=== PATIENT | female | born 1970 | race Two or more races ===

== ENCOUNTER 2024-08-20 07:30 | Emergency (ER) | payer OTHER ==
[~2024-08-20] VITALS: Ht 157.5 cm; Wt 59.9 kg
[2024-08-20] MEDS ORDERED: METHYLPREDNISOLONE SOD SUCC 125 MG VIAL IM STA (10:13)
[2024-08-20] MEDS ORDERED: DIPHENHYDRAMINE HCL 50 MG/ML VIAL 1ML IM STA (10:13)
[2024-08-20] MEDS ORDERED: FAMOTIDINE/PF 20 MG/2 ML VIAL IV PUSH STA (10:15)
== END 2024-08-20 10:37 | disposition home or self-care (01) ==
LOC: ER 07:32
DX: L29.89 Other pruritus (principal); Z88.0 Allergy status to penicillin; Z88.6 Allergy status to analgesic agent; Z91.041 Radiographic dye allergy status; Z88.2 Allergy status to sulfonamides
CPT/HCPCS: 96365; 96372; 99282; J1200; J3490 ×2

== ENCOUNTER 2024-10-25 19:01 | Emergency (ER) | payer OTHER ==
[~2024-10-25] VITALS: Ht 157.5 cm; Wt 63.0 kg
[2024-10-25 19:34] VITALS: BP 163/88; O2SAT 98
[2024-10-25] MEDS ORDERED: BENZONATATE 100 MG CAPSULE PO ONE (21:45)
[2024-10-25] MEDS ORDERED: IPRATROPIUM/ALBUTEROL SULFATE 3 ML AMPUL.NEB IH SCH (21:45)
[2024-10-25 22:06] LABS: HEMATOCRIT 44.1 % (36.0-45.00); HEMOGLOBIN 15.6 g/dL (12.0-15.00); MEAN CELL VOLUME 87.2 fL (80.00-100.00); MEAN CORPUSCULAR HEMOGLOBIN 30.8 pg (27.00-32.0); MEAN CORPUSCULAR HGB CONC 35.3 g/dl (32.0-36.0); PLATELET COUNT 359 K/uL (150-450); RED BLOOD COUNT 5.06 M/uL (4.00-6.00); RED CELL DISTRIBUTION WIDTH 12.9 % (11.5-14.5)
[2024-10-25] MEDS ORDERED: IPRATROPIUM/ALBUTEROL SULFATE 3 ML AMPUL.NEB IH ONE (22:27)
[2024-10-26] MEDS ORDERED: BENZONATATE200 M1 PO (00:13)
== END 2024-10-26 00:48 | disposition home or self-care (01) ==
LOC: ER 19:03
PROVIDERS: Preventive Medicine Public Health & General Preventive Medicine
DX: J06.9 Acute upper respiratory infection, unspecified (principal); R05.9 Cough, unspecified; Z20.822 Contact with and (suspected) exposure to COVID-19; Z88.2 Allergy status to sulfonamides

== ENCOUNTER 2025-04-23 11:03 | Emergency (ER) | payer OTHER ==
[~2025-04-23] VITALS: Ht 157.5 cm; Wt 59.9 kg
[~2025-04-23 11:03] MED LIST: BENZONATATE200 M1 PO
[2025-04-23] MEDS ORDERED: ACETAMINOPHEN 500 MG GEL..CAP PO ONE (15:15)
[2025-04-23 15:56] LABS: BASO % 0.3 % (0.1-1.2); EOS # 0.21 (0.04-0.54); EOS % 2.2 % (0.7-7.0); LYMPH # 4.13 (1.18-3.74); LYMPH % 43.8 % (19.3-53.1); MEAN PLATELET VOLUME 9.40 fl (9.4-12.4); MONO # 0.50 (0.24-0.82); MONO % 5.3 % (4.7-12.5); NEUT # 4.53 (1.56-6.13); NEUT % 48.2 % (34.0-71.1); RED CELL DISTRIBUTION WIDTH 11.7 % (11.6-14.4)
[2025-04-23 16:59] LABS: COVID-19 AG NEGATIVE (NEGATIVE)
[2025-04-23] MEDS ORDERED: BENADRYL ALLERG25 MG PO (18:20)
[2025-04-23] MEDS ORDERED: [UNRECOGNIZED DRUG - OTHER] OPHT (18:20)
== END 2025-04-23 19:06 ==
LOC: ER 11:03
PROVIDERS: Preventive Medicine Public Health & General Preventive Medicine
DX: L29.9 Pruritus, unspecified (principal); R51.9 Headache, unspecified; Z20.822 Contact with and (suspected) exposure to COVID-19; Z88.2 Allergy status to sulfonamides

== ENCOUNTER 2025-10-03 07:18 | Emergency (ER) | payer OTHER ==
[~2025-10-03] VITALS: Ht 157.5 cm; Wt 62.6 kg
[~2025-10-03 07:18] MED LIST changes: +BENADRYL ALLERG25 MG PO; +[UNRECOGNIZED DRUG - OTHER] OPHT
[2025-10-03] MEDS ORDERED: DEXAMETHASONE SODIUM PHOSPHATE 4 MG/ML VIAL IM STA (08:33)
[2025-10-03] MEDS ORDERED: DIPHENHYDRAMINE HCL 50 MG/ML VIAL 1ML ONE (08:41)
[2025-10-03] MEDS ORDERED: DEXAMETHASONE SODIUM PHOSPHATE 4 MG/ML VIAL ONE (08:41)
[2025-10-03] MEDS ORDERED: ACETAMINOPHEN 500 MG GEL..CAP PO ONE ×2 (08:41→08:45)
[2025-10-03] MEDS ORDERED: DIPHENHYDRAMINE HCL 50 MG/ML VIAL 1ML IM ONE (08:45)
[2025-10-03] MEDS ORDERED: DOLOGESIC-DF 51 EACH PO (11:07)
== END 2025-10-03 11:23 | disposition home or self-care (01) ==
LOC: ER 07:19
DX: M54.89 Other dorsalgia (principal); Z88.0 Allergy status to penicillin; Z88.2 Allergy status to sulfonamides; Z88.6 Allergy status to analgesic agent; Z91.041 Radiographic dye allergy status; E11.9 Type 2 diabetes mellitus without complications